=== PATIENT | female | born 1955 | race Caucasian/White ===

== ENCOUNTER 2022-04-06 07:51 | Emergency (ER) | payer BC ==
[~2022-04-06] VITALS: Ht 162.6 cm; Wt 84.0 kg
[2022-04-06] MEDS ORDERED: dexamethasone sod phosphate 10mg/ml inj IM STA (08:57)
[2022-04-06] MEDS ORDERED: ipratropium 0.5 MG/2.5ML nebule IH ONE (09:00)
[2022-04-06] MEDS ORDERED: albuterol 2.5 MG/3 ML nebule CONTNEB PRN (09:00)
--- NOTE | 2022-04-06 09:11 | NUR ---
RT PAGED TO ADMINISTER BREATHING TX
[2022-04-06] MEDS ORDERED: codeine (09:23)
[2022-04-06] MEDS ORDERED: acetaminophen 325mg tablet PO ONE (09:40)
[2022-04-06] MEDS ORDERED: PRED20TA PO (09:46)
[2022-04-06] MEDS ORDERED: ALB0.5UD IH (09:46)
[2022-04-06] MEDS ORDERED: AZIT250T27 PO (09:46)
[2022-04-06] MEDS ORDERED: BENZ-38 PO (09:47)
[2022-04-06 10:14] VITALS: BP 120/45
--- NOTE | 2022-04-06 10:19 | NUR ---
Patient unable tolerate breathing tx. No post-tx vitals were done. Patient going home now.
== END 2022-04-06 10:19 | disposition home or self-care (01) ==
LOC: ER 07:52
DX: R05.9 Cough, unspecified (principal); R06.02 Shortness of breath; J44.9 Chronic obstructive pulmonary disease, unspecified; Z88.2 Allergy status to sulfonamides; Z88.5 Allergy status to narcotic agent; Z87.891 Personal history of nicotine dependence
CPT/HCPCS: 94640; 96372; 99284; J1100; 94760; A7015

== ENCOUNTER 2022-09-08 11:33 | Emergency (ER) | payer BC ==
[~2022-09-08] VITALS: Ht 170.2 cm; Wt 81.6 kg
[~2022-09-08 11:33] MED LIST: ALB0.5UD IH; codeine
[2022-09-08 11:36] VITALS: BP 125/51; PULSE 75; TEMP 97.9; O2SAT 97
--- NOTE | 2022-09-08 13:02 | NUR ---
xray at [facility]
[2022-09-08] MEDS ORDERED: HYDROcodone/acetaminophen 5mg/325mg tablet PO ONE (13:35)
--- NOTE | 2022-09-08 13:37 | NUR ---
Pt verbalized she has had norco before with no ase
[2022-09-08 13:48] VITALS: RESP 19
[2022-09-08] MEDS ORDERED: HYDR-3965 PO (15:15)
== END 2022-09-08 15:00 | disposition home or self-care (01) ==
LOC: ER 11:34
DX: S90.121A Contusion of right lesser toe(s) without damage to nail, initial encounter (principal); J44.9 Chronic obstructive pulmonary disease, unspecified; X58.XXXA Exposure to other specified factors, initial encounter; Y93.89 Activity, other specified; Y92.89 Other specified places as the place of occurrence of the external cause; Y99.8 Other external cause status
CPT/HCPCS: 73660; 99283

== ENCOUNTER 2023-11-21 12:51 | Emergency (ER) | payer BC ==
[~2023-11-21] VITALS: Ht 162.6 cm; Wt 71.3 kg
[2023-11-21 12:58] VITALS: BP 135/64; PULSE 74; RESP 17; O2SAT 97
[2023-11-21] MEDS ORDERED: AZIT250T83 PO (15:08)
[2023-11-21 15:16] VITALS: TEMP 98
== END 2023-11-21 15:17 | disposition home or self-care (01) ==
LOC: ER 12:52
DX: J02.9 Acute pharyngitis, unspecified (principal); R05.9 Cough, unspecified; R09.81 Nasal congestion; J44.9 Chronic obstructive pulmonary disease, unspecified; Z88.8 Allergy status to other drugs, medicaments and biological substances; Z88.5 Allergy status to narcotic agent
CPT/HCPCS: 71046; 82948; 99283